=== PATIENT | male | born 1995 | race African-American/Black ===

== ENCOUNTER 2018-11-08 04:05 | Emergency (ER) | payer MEDICAID ==
[~2018-11-08] VITALS: Ht 167.6 cm; Wt 71.0 kg
[2018-11-08] MEDS ORDERED: ONDANSETRON HCL 4MG/2ML INJ IV STA (06:22)
[2018-11-08] MEDS ORDERED: KETOROLAC 30MG/ML VIAL IV STA (06:22)
[2018-11-08 06:41] LABS: BASOPHILS % 0.7 % (0.0-2.0); HEMATOCRIT. 39.9 % (42.0-52.0); HEMOGLOBIN. 13.7 g/dL (14.0-18.0); LYMPHOCYTES % 36.5 % (20.0-50.0); MEAN CORPUSCULAR HEMOGLOBIN 30.3 pg (28.0-32.0); MEAN CORPUSCULAR VOLUME 88.4 fL (80.0-94.0); MEAN PLATELET VOLUME 7.7 fl (7.4-10.4); MONOCYTES % 8.7 % (2.0-8.0); NEUTROPHILS % 51.1 % (40.0-76.0); PLATELET 232 x1000/uL (130-400); RED BLOOD CELL COUNT 4.52 mill/uL (4.7-6.1); RED CELL DISTRIBUTION WIDTH 13.1 % (11.6-14.6)
[2018-11-08 06:49] LABS: CHLORIDE 106 mEq/L (98-107)
[2018-11-08 06:55] LABS: INR 1.1
[2018-11-08] MEDS ORDERED: ONDANSETRON HCL 4MG TABLET PO ONE (07:30)
[2018-11-08] MEDS ORDERED: ACETAMINOPHEN 325MG TABLET PO ONE (07:30)
[2018-11-08 07:50] VITALS: BP 125/71
[2018-11-08 13:26] LABS: CLARITY URINE CLEAR (CLEAR); COLOR URINE YELLOW (YELLOW); KETONES URINE NEGATIVE (NEGATIVE); LEUKOCYTE ESTERASE URINE 1+ (NEGATIVE); NITRITE URINE NEGATIVE (NEGATIVE); OCCULT BLOOD URINE NEGATIVE (NEGATIVE); PH URINE 6.5 (4.5-8.0); PROTEIN URINE NEGATIVE (NEGATIVE); SPECIFIC GRAVITY URINE 1.021 (1.005-1.030); UROBILINOGEN URINE 0.2 E.U./dL (0.2-1.0)
== END 2018-11-08 07:55 | disposition home or self-care (01) ==
LOC: ER 04:05 → EDBD 04:05 → ER 07:55
DX: B34.9 Viral infection, unspecified (principal); R10.9 Unspecified abdominal pain; J45.909 Unspecified asthma, uncomplicated; F12.10 Cannabis abuse, uncomplicated
CPT/HCPCS: 36415; 80053; 81003; 83690; 85025; 85610; 96374; 96375; 99283; J1885; J2405; Q0162; Z7610

== ENCOUNTER 2022-10-24 12:21 | Emergency (ER) | payer MEDICAID ==
[~2022-10-24] VITALS: Ht 167.6 cm; Wt 69.0 kg
[2022-10-24 12:23] VITALS: BP 117/83; PULSE 60; RESP 16; TEMP 98.9; O2SAT 99
== END 2022-10-24 16:06 | disposition home or self-care (01) ==
LOC: ER 12:21
DX: M79.89 Other specified soft tissue disorders (principal); M79.641 Pain in right hand; F12.90 Cannabis use, unspecified, uncomplicated; J45.909 Unspecified asthma, uncomplicated
CPT/HCPCS: 99281